=== PATIENT | female | born 1975 | race Caucasian/White ===

== ENCOUNTER 2022-09-24 14:14 | Emergency (ER) | payer BC ==
[2022-09-24] MEDS ORDERED: Sodium Chloride 0.9% 10 ML Syringe FLUSH PRN (14:28)
[2022-09-24] MEDS ORDERED: Sodium Chloride 0.9% 2.5 ML Syringe FLUSH PRN (14:28)
[2022-09-24] MEDS ORDERED: Sodium Chloride 0.9% 1,000 ML IV STA (14:31)
[2022-09-24 14:50] LABS: BASOPHILS PERCENT AUTO 0.2 % (0.0-1.5); EOSINOPHILS ABSOLUTE AUTO 0.1 K/uL (0.0-0.7); EOSINOPHILS PERCENT AUTO 0.7 % (0.0-7.0); HEMATOCRIT 39.3 % (36.0-46.0); HEMOGLOBIN 13.3 g/dL (12.0-16.0); LYMPHOCYTES ABSOLUTE AUTO 1.6 K/uL (0.6-2.4); LYMPHOCYTES PERCENT AUTO 18.2 % (16.0-40.0); MEAN CORPUSCULAR HEMOGLOBIN 29.7 pg (27.0-32.0); MEAN CORPUSCULAR HGB CONC 33.8 g/dL (31.0-37.0); MEAN CORPUSCULAR VOLUME 87.7 fL (80.0-98.0); MONOCYTES ABSOLUTE AUTO 0.4 K/uL (0.0-0.8); NEUTROPHILS ABSOLUTE AUTO 6.7 K/uL (1.4-5.7); NEUTROPHILS PERCENT AUTO 75.9 % (48.0-80.0); NRBC ABSOLUTE 0 K/uL; PLATELET COUNT,PLT 311 K/uL (150-400); RED BLOOD CELL COUNT 4.48 M/uL (4.30-5.90); WHITE BLOOD CELL COUNT,WBC 8.88 K/uL (4.0-11.0)
[2022-09-24 15:14] LABS: ALBUMIN 3.5 g/dL (3.4-5.0); BILIRUBIN TOTAL 0.4 mg/dL (0.2-1.0); CALCIUM 8.6 mg/dL (8.5-10.1); CARBON DIOXIDE,CO2 23.8 mmol/L (21.0-32.0); CREATININE 0.7 mg/dL (0.6-1.0); EST CRCL DRUG DOSING (CG) 94.01 mL/min; POTASSIUM,K 3.7 mmol/L (3.5-5.1); PROTEIN TOTAL,TP 7.1 g/dL (6.4-8.2)
[2022-09-24 15:25] LABS: MAGNESIUM 2.1 mg/dL (1.8-2.4); TSH ULTRASENSITIVE 3.46 uIU/mL (0.36-3.74)
[2022-09-24 15:49] LABS: CORONAVIRUS COVID-19 NAA NEGATIVE (NEGATIVE); INFLUENZA A NAA NEGATIVE (NEGATIVE); INFLUENZA B NAA NEGATIVE (NEGATIVE)
[2022-09-24 16:12] LABS: APPEARANCE,URINE CLEAR; BILIRUBIN,URINE NEGATIVE (NEGATIVE); COLOR,URINE YELLOW; GLUCOSE,URINE NEGATIVE (NEGATIVE); KETONES,URINE 40 mg/dL (NEGATIVE); LEUKOCYTE ESTERASE,URINE NEGATIVE (NEGATIVE); NITRITE,URINE NEGATIVE (NEGATIVE); OCCULT BLOOD,URINE NEGATIVE (NEGATIVE); PROTEIN,URINE 30 mg/dL (NEGATIVE)
[2022-09-24 16:25] LABS: BACTERIA,URINE FEW (NEGATIVE); EPITHELIAL CELLS,URINE FEW (NONE-FEW); MUCUS,URINE LIGHT (NONE-MOD); RBC,URINE 0-1 (0-2/HPF); WBC,URINE 0-1 (0-5/HPF)
== END 2022-09-24 16:58 | disposition home or self-care (01) ==
LOC: MW.ED 14:14
DX: R55 Syncope and collapse (principal); E78.00 Pure hypercholesterolemia, unspecified; I10 Essential (primary) hypertension; K21.9 Gastro-esophageal reflux disease without esophagitis; E10.9 Type 1 diabetes mellitus without complications; Z88.2 Allergy status to sulfonamides; Z79.899 Other long term (current) drug therapy; Z20.822 Contact with and (suspected) exposure to COVID-19
CPT/HCPCS: 0240U; 36415; 71045; 80053; 81001; 81025; 83735; 84443; 84484; 85025; 93005; 96360; 99284; J3490; J7030; 93010; 99283